=== PATIENT | male | born 1930 | race Caucasian/White ===

== ENCOUNTER → 2018-04-29 | Outpatient (CLI) | payer MEDICARE ==
[~2018-04-29] MED LIST: CIPRO500 MG PO; FAMOTIDINE20 MG PO; FLOMAX0.4 MG PO; KEFLEX500 MG PO; LEVAQUIN500 MG PO; SENOKOT8.6 MG PO
--- NOTE | 2018-04-29 14:43 | Diagnostic Imaging Report ---
EXAM: ABDOMEN-1VIEW (KUB) DATE: 04/29/2018 12:28 PM INDICATION: Microhematuria COMPARISON: CT abdomen/pelvis, 12/21/2016 FINDINGS: 2 supine views of the abdomen show a normal distribution of air in the small and large bowel. No specific abnormal soft tissue calcifications. Small calcifications in the kidneys might be obscured by overlying bowel. Phleboliths are seen in the pelvis. Degenerative changes are present in the spine. IMPRESSION: No bowel dilatation or evidence for bowel obstruction. No specific abnormal soft tissue calcification seen. Signed by: Dr. Get Espinoza M.D. on 04/29/2018 2:39 PM
--- NOTE | 2018-04-29 15:55 | Diagnostic Imaging Report ---
EXAM: US RENAL RETROPERITONEAL COMP DATE: 04/29/2018 12:28 PM INDICATION: Microhematuria COMPARISON: CT abdomen/pelvis, 12/21/2016 FINDINGS: Grayscale and color flow Doppler ultrasound of the kidneys and urinary bladder performed. Right kidney: 9.9 x 4.7 x 3.4 cm. Cortical thickness 0.9 cm. Cortex echogenic. No hydronephrosis. Upper pole cyst measures 1.5 x 1.1 x 1.3 cm. Lower pole cyst measures 1.7 x 1.6 x 1.7 cm Left kidney: 10.9 x 4.9 x 4.6 cm. Cortical thickness 1.0 cm. Cortex is echogenic. No hydronephrosis. Lower pole cyst measures 1.7 x 1.6 x 1.3 cm. Urinary bladder: Unremarkable appearance. Left ureteral jet was seen. Bladder volume 81 cc. Postvoid volume could not be obtained. Prostate measures 2.4 x 3.7 x 3.8 cm with calculated volume 18 cc. IMPRESSION: 1. No hydronephrosis. Small bilateral renal cysts. 2. Thin, hyperechoic renal cortex bilaterally suggesting medical renal disease. 3. Unremarkable appearing urinary bladder. Signed by: Dr. Get Espinoza M.D. on 04/29/2018 3:50 PM
== END ==
LOC: US 12:16
PROVIDERS: ATTEND Urology
DX: R31.0 Gross hematuria (principal); N18.9 Chronic kidney disease, unspecified
CPT/HCPCS: 74018; 76770

== ENCOUNTER → 2018-05-13 | Day surgery (SDC) | payer OTHER ==
[~2018-05-13] MED LIST changes: +BELLADONNA/OPIUM 60 MG SUPP PR ONE; +CEFTRIAXONE SOD 1 GM/NS 50 ML 50 ML IV ONE; +DEXTROSE 5% 250ML 250 ML IV ONE; +GLIMEPIRIDE1 MG PEG; +IOPAMIDOL 610MG/1ML 300 MG/ML VIAL IV ONE; +LIDOCAINE HCL 2% LOCAL INJ 5 ML SDV VIAL INJ ONE; +LISINOPRIL2.5 MG PO; +ONDANSETRON HCL INJ 2MG/ML 2ML 2 MG/ML VIAL ONE; +PROPOFOL IV EMULSION 10 MG/ML 20 ML VIAL ONE; +SEVOFLURANE INHAL SOLN 250 ML PEN BTL ONE; +VITAMIN B COMP1 EACH PO
--- OUTSIDE RECORDS SUMMARY | 2018-05-13 08:52 | XMS REPORT ---
[facility] Address Unknown Phone Unavailable Care Team Providers Care Quality Assurance/R&D Lab Technician Name Role Phone GENEVA BLOCK Unavailable Unavailable Lizz FIGUEROA Unavailable Unavailable Payers Payer Name Policy Type Policy Number Effective Date Expiration Date Problems This patient has no known problems. Allergies, Adverse Reactions, Alerts Allergy Name Allergy Type Status Severity Reaction(s) Onset Date Inactive Date Treating Clinician Comments No Known Allergies DA Active U 2017-11-02 00:00:00 Medications This patient has no known medications. Results Test Description Test Time Test Comments Text Results Atomic Results Result Comments US RENAL RETROPERITONEAL COMP 2018-04-29 15:45:00 [place] [address] Patient Name: RYLIE GE MR #: [id number] : 1930 Age/Sex: 87/M Req #: [id number] Adm Physician: Ordered by: GENEVA BLOCK MD Report #: [id number] Location: US Room/Bed: Procedure: [id number] US/US RENAL RETROPERITONEAL COMP Exam Date: 04/29/18 Exam Time: 1245 REPORT STATUS: Signed EXAM: US RENAL RETROPERITONEAL COMP DATE: 12:28 PM INDICATION: Microhematuria COMPARISON: CT abdomen/pelvis, 12/21/2016 FINDINGS: Grayscale and color flow Doppler ultrasound of the kidneys and urinary bladder performed. Right kidney: 9.9 x 4.7 x 3.4 cm. Cortical thickness 0.9 cm. Cortex echogenic. No hydronephrosis. Upper pole cyst measures 1.5 x 1.1 x 1.3 cm. Lower pole cyst measures 1.7 x 1.6 x 1.7 cm Left kidney: 10.9 x 4.9 x 4.6 cm. Cortical thickness 1.0 cm. Cortex is echogenic. No hydronephrosis. Lower pole cyst measures 1.7 x 1.6 x 1.3 cm. Urinary bladder: Unremarkable appearance. Left ureteral jet was seen. Bladder volume 81 cc. Postvoid volume could not be obtained. Prostate measures 2.4 x 3.7 x 3.8 cm with calculated volume 18 cc. IMPRESSION: 1. No hydronephrosis. Small bilateral renal cysts. 2. Thin, hyperechoic renal cortex bilaterally suggesting medical renal disease. 3. Unremarkable appearing urinary bladder. Signed by: Dr. Jesse Guerin M.D. on 04/29/2018 3:50 PM Dictated By: JESSE GUERIN MD [id number] Transcribed By: CHIQUITA on 04/29/18 1557 COPY TO: GENEVA BLOCK MD [facility] ([facility]) 2018-04-29 14:33:00 [place] [address] Patient Name: RYLIE GE MR #: [id number] : 1930 Age/Sex: 87/M Req #: [id number] Adm Physician: Ordered by: GENEVA BLOCK MD Report #: [id number] Location: Room/Bed: Procedure: [id number] DX/ABDOMEN-1VIEW (KUB) Exam Date: 04/29/18 Exam Time: 1320 REPORT STATUS: Signed EXAM: ABDOMEN-1VIEW (KUB) DATE: 04/29/2018 12:28 PM INDICATION: Microhematuria COMPARISON: CT abdomen/pelvis, 12/21/2016 FINDINGS: 2 supine views of the abdomen show a normal distribution of air in the small and large bowel. No specific abnormal soft tissue calcifications. Small calcifications in the kidneys might be obscured by overlying bowel. Phleboliths are seen in the pelvis. Degenerative changes are present in the spine. IMPRESSION: No bowel dilatation or evidence for bowel obstruction. No specific abnormal soft tissue calcification seen. Signed by: Dr. Jesse Guerin M.D. on 04/29/2018 2:39 PM Dictated By: JESSE GUERIN MD [id number] Transcribed By: CHIQUITA on 04/29/18 1439 COPY TO: GENEVA BLOCK MD CT ABDOMEN/PELVIS WO [place] [address] Patient Name: RYLIE GE MR #: [id number] : 1930 Age/Sex: 86/M Req #: [id number] Adm Physician: Ordered by: LAUREN FIGUEROA MD Report #: [id number] Location: ER Room/Bed: Procedure: [id number] CT/CT ABDOMEN/PELVIS WO Exam Date: 12/21/16 Exam Time: 1212 REPORT STATUS: Signed EXAM: CT Abdomen and Pelvis WITHOUT contrast INDICATION: Abdominal pain COMPARISON: None. TECHNIQUE: Abdomen and pelvis were scanned utilizing a multidetector helical scanner from the lung base to the pubic symphysis. Coronal and sagittal reformations were obtained. The lack of intravenous contrast limits the evaluation of the solid organs, vasculature, and possible lymphadenopathy. Protocol: General survey without contrast IV CONTRAST: No intravenous contrast was administered as per physician request. ORAL CONTRAST: None. COMPLICATIONS: None. RADIATION DOSE: Total Exam DLP: 398.8 mGy*cm. CTDIvol has been reviewed. It is below the limits set by the Radiation Protocol Committee (RPC). FINDINGS: LINES: None. Lower thorax: No parenchymal abnormality. No pneumothorax. No pleural effusion. Bibasilar atelectasis. Bilateral lower lobe bronchiectasis. Liver: No focal mass. No hepatomegaly. Normal parenchyma. Gallbladder: No gallstones. No gallbladder distention. Biliary tree: No intrahepatic duct dilation. No extrahepatic duct dilation. Spleen: No splenomegaly. No focal mass. Pancreas: No focal mass. Normal pancreatic duct. No peripancreatic inflammatory changes. Kidneys: No obstructing calculi. No hydronephrosis. Simple cyst are present in the right kidney. Minimal bilateral nonspecific perinephric soft tissue inflammatory changes. The kidneys are atrophic bilaterally. Adrenal glands: No adrenal nodules.. Bladder: Normal contour. Minimal pericystic inflammatory changes. Pelvic organs: The prostate is enlarged with adjacent soft tissue inflammatory changes, series 3 image 171. No drainable fluid collection. GI: No bowel wall thickening. No air-fluid levels. The stomach and small bowel are normal. Diverticulosis of the descending and sigmoid colon, without adjacent soft tissue inflammatory changes. Normal appendix. A moderate amount of retained feces limits intraluminal evaluation of the colon. Peritoneum/retroperitoneum: No pneumoperitoneum. No ascites. No drainable fluid collection. Lymph nodes: No lymphadenopathy. . Vessels: No focal abnormality. Aortoiliac atherosclerotic calcifications. Limited evaluation. Bones: No focal abnormality. Degenerative changes of the lumbar spine. Soft tissues: No focal abnormality. IMPRESSION: Inflammatory changes around the urinary bladder and prostate may represent cystitis or prostatitis. Correlate clinically. No evidence of nephrolithiasis. Diverticulosis without evidence of diverticulitis. Signed by: Dr. Wanda Ryan M.D. on 12/21/2016 1:01 PM Dictated By: WANDA RYAN MD [id number] Transcribed By: CHIQUITA on 12/21/16 1301 COPY TO: LAUREN FIGUEROA MD
[2018-05-13 09:43] LABS: BASOPHILS % 0.3 % (0.0-1.0); EOSINOPHILS # (AUTO) 0.1 (0.0-0.4); EOSINOPHILS % 1.4 % (0.0-6.0); HEMATOCRIT 41.2 % (38.2-49.6); HEMOGLOBIN 13.2 g/dL (14.0-18.0); LYMPHOCYTES # (AUTO) 2.2 (1.0-3.2); LYMPHOCYTES % 29.2 % (18.0-39.1); MEAN CORPUSCULAR VOLUME 87.3 fL (81-99); MONOCYTES # (AUTO) 0.6 (0.2-0.8); MONOCYTES % 7.5 % (4.4-11.3); NEUTROPHILS # (AUTO) 4.7 (2.1-6.9); NEUTROPHILS % 61.5 % (38.7-80.0); PLATELET COUNT 170 x10e3/uL (140-360); RED BLOOD COUNT 4.72 x10e6/uL (4.3-5.7); RED CELL DISTRIBUTION WIDTH 13.6 % (11.7-14.4)
--- NOTE | 2018-05-13 10:42 | Diagnostic Imaging Report ---
EXAMINATION: PA and lateral views of the chest. COMPARISON: CT abdomen and pelvis 12/21/2016 CLINICAL HISTORY: Preoperative exam for cystoscopy DISCUSSION: Lung volumes are low. Coarse reticular opacities throughout the lungs, likely age-related fibrotic changes. Nodular density projecting over the vertebral column on the lateral radiograph is likely related to large degenerative osteophytes as seen on prior CT. No focal consolidation or pleural effusion. Tortuous thoracic aorta with atherosclerotic calcification. Prominence of the paratracheal regions of the mediastinum is likely attributable to great vessel tortuosity. No overt pulmonary edema. No acute osseous abnormality. IMPRESSION: No acute cardiopulmonary abnormality. 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 Signed by: Dr. Smooth Ortiz M.D. on 05/13/2018 10:39 AM
[2018-05-13 12:15] VITALS: BP 154/70
--- NOTE | 2018-06-16 15:20 | Operative Report ---
DATE OF PROCEDURE: 05/13/2018 SURGEON: Evan Sanches MD PREOPERATIVE DIAGNOSES: 1. Gross hematuria. 2. Urinary tract infection. POSTOPERATIVE DIAGNOSES: 1. Gross hematuria. 2. Urinary tract infection. OPERATIONS PERFORMED: 1. Cystourethroscopy with bilateral ureteral catheterization and retrograde ureteropyelography. 2. Interpretation of retrograde ureteropyelography. 3. Supervision of fluoroscopy, no radiologist present. ANESTHESIA: General. COMPLICATIONS: None. CLINICAL SUMMARY: Oscar Haque is an 87-year-old male with the above preoperative diagnoses. He is brought for the above procedures. He is aware of the risks of bleeding, infection, injury to adjacent structures, need for additional procedures, and elected to proceed. OPERATIVE PROCEDURE IN DETAIL: Informed consent was verified. Oscar Haque was properly identified, taken to the operating room, placed on the cystoscopy table in supine position. Anesthesia was uneventfully begun. The patient was then carefully and gently repositioned in the dorsal lithotomy position with all pressure points well padded. His genitalia were prepared and draped in usual sterile fashion. The cystoscope sheath with the visual obturator in place was atraumatically inserted into the patient's urethra and was guided unremarkable distal urethra through the normal sphincteric region into the patient's prostate bed, which exhibited signs of previous transurethral resection of the prostate, which was performed at the [facility] in 2017. There was significant amount of residual apical tissue that was causing obstruction at the level of the apex. Near to the patient's bladder, where panendoscopy revealed grade 2 trabeculation, but no tumors, no stones, no diverticula. Normally positioned and configured ureteral orifices were identified. An 18-Qatari catheter was used to cannulate each ureter and retrograde ureteropyelography was performed. Interpretation of retrograde ureteropyelography: Contrast was instilled in a retrograde fashion bilaterally. There were tumors, no stones, and no diverticula. Unobstructed drainage was observed bilaterally fluoroscopically. Note should be made about the patient's struggle trigonal mucosa, which exhibited small inflammatory nodule 1 to 2 mm in size consisting with recurrent infection. These were not suspicious and no biopsies were indicated. The cystoscope was withdrawn. A belladonna and opium suppository were placed revealing a large prostate, smooth, non-fluctuant without any nodules. The patient's prostate was at least 40 g. The patient was then uneventfully reversed from anesthesia and taken to recovery room in stable condition. There were no complications to the procedure. He tolerated the procedure well. Explicit postoperative instructions were given. We will follow the patient up in the office and should the patient have enough mobility, we will plan on performing uroflowmetry and bladder ultrasonography in the future. MD ELIZABETH Kamara/ZOILA /[id number]
== END | disposition home or self-care (01) ==
LOC: OR 08:42
PROVIDERS: ATTEND Urology
DX: N39.0 Urinary tract infection, site not specified (principal); N32.89 Other specified disorders of bladder; R35.1 Nocturia; N40.1 Benign prostatic hyperplasia with lower urinary tract symptoms; N39.41 Urge incontinence; N39.44 Nocturnal enuresis; N32.81 Overactive bladder; I12.9 Hypertensive chronic kidney disease with stage 1 through stage 4 chronic kidney disease, or unspecified chronic kidney disease; N18.9 Chronic kidney disease, unspecified; H54.8 Legal blindness, as defined in USA; E11.22 Type 2 diabetes mellitus with diabetic chronic kidney disease; J45.909 Unspecified asthma, uncomplicated; I45.10 Unspecified right bundle-branch block; H40.9 Unspecified glaucoma; I25.10 Atherosclerotic heart disease of native coronary artery without angina pectoris; K21.9 Gastro-esophageal reflux disease without esophagitis; Z79.4 Long term (current) use of insulin; Z98.890 Other specified postprocedural states
CPT/HCPCS: 36415; 52005; 71046; 74420; 82948; 85025; 93005; C1758; J0696; J2001; J2405; J2704; J7070; Q9967